=== PATIENT | male | born 1945 | race Caucasian/White ===

== ENCOUNTER 2019-02-24 12:49 | Inpatient (IN) | payer MEDICARE ==
[~2019-02-24] VITALS: Ht 172.7 cm; Wt 63.5 kg
--- NOTE | 2019-02-24 12:55 | NUR ---
PT MAX ROOM #3 UNDER DIRECT OBSEVATION OF KEELY FLORIAN. DR ESTEVEZ EVALUATED THE PT.
[2019-02-24 13:12] LABS: BASOPHILS % (AUTO) 0.5 % (0.0-2.0); EOSINOPHILS # (AUTO) 0.1 K/uL (0.0-0.7); EOSINOPHILS % (AUTO) 0.9 % (0.0-7.0); HEMATOCRIT 42.9 % (36.7-47.1); HEMOGLOBIN 14.3 g/dL (12.5-16.3); LYMPHOCYTES # (AUTO) 1.9 K/uL (20.0-40.0); LYMPHOCYTES % (AUTO) 30.6 % (20.5-51.5); MEAN CORPUSCULAR HEMOGLOBIN 33.7 uug (23.8-33.4); MEAN CORPUSCULAR HGB CONC 33 g/dL (32.5-36.3); MONOCYTES # (AUTO) 0.3 K/uL (2.0-10.0); MONOCYTES % (AUTO) 4.7 % (0.0-11.0); NEUTROPHILS # (AUTO) 3.9 K/uL (1.8-8.9); NEUTROPHILS % (AUTO) 63.3 % (38.5-71.5); PLATELET COUNT (AUTO) 263 K/uL (152-348); RED BLOOD CELL COUNT(AUTO) 4.25 MIL/uL (4.06-5.63); WHITE BLOOD COUNT (AUTO) 6.1 K/uL (3.6-10.2)
[2019-02-24 13:19] LABS: CARBON DIOXIDE 28 mmol/L (21-32); CHLORIDE 102 mmol/L (98-107); CREATININE 0.8 mg/dL (0.6-1.3); GLUCOSE 137 mg/dL (74-106); POTASSIUM 3.7 mmol/L (3.5-5.1); UREA NITROGEN, BLOOD 13 mg/dL (7-18)
[2019-02-24 13:22] LABS: ETHANOL < 3 MG/DL (0-0)
[2019-02-24 13:25] LABS: ALANINE AMINOTRANSFERASE 17 U/L (16-63); ALKALINE PHOSPHATASE 92 U/L (50-136); ASPARTATE AMINOTRANSFERASE 21 U/L (15-37); BILIRUBIN,DIRECT 0.2 mg/dL (0.0-0.2); BILIRUBIN,TOTAL 0.7 mg/dL (0.2-1.0); CREATINE KINASE, TOTAL 344 U/L (39-308); TOTAL PROTEIN, SERUM 7.1 g/dL (6.4-8.2)
[2019-02-24 13:32] LABS: THYROID STIMULATING HORMONE 1.111 mIU/mL (0.358-3.740)
--- NOTE | 2019-02-24 13:38 | NUR ---
There is no 1:1 sitter available at this time. Pt is A/O x 4, calm and coopertive, understands plan of care. Will monitor closely.
[2019-02-24 13:40] LABS: *BILIRUBIN,URIN NEGATIVE (NEGATIVE); *BLOOD, URINE 1+ (NEGATIVE); *CLARITY,URINE CLEAR (CLEAR); *COLOR,URINE YELLOW (YELLOW); *KETONES,URINE NEGATIVE (NEGATIVE); *UROBILINOGEN,URINE 0.2 E.U./dl (NORMAL); LEUKOCYTE ESTERASE ,URINE NEGATIVE (NEGATIVE); NITRITE, URINE NEGATIVE (NEGATIVE); UGLUCOSE NEGATIVE (NEGATIVE)
[2019-02-24 13:48] LABS: BACTERIA,URINE NONE SEEN /HPF (NONE SEEN); RBC,URINE 0-3 /HPF (0-3); SQUAMOUS EPITHELIAL CELL,UR NONE SEEN /HPF (NONE SEEN); WBC,URINE 0-3 /HPF (0-3)
[2019-02-24 14:03] LABS: *AMPHETAMINE, URINE NEGATIVE (NEGATIVE); *BARBITURATE, URINE NEGATIVE (NEGATIVE); *CANNABINOID, URINE NEGATIVE (NEGATIVE); *COCCAINE, URINE NEGATIVE (NEGATIVE); *OPIATE, URINE NEGATIVE (NEGATIVE); *PHENCYCLIDINE SCREEN,URINE NEGATIVE (NEGATIVE)
--- NOTE | 2019-02-24 14:15 | NUR ---
Pt is medically clear, SBAR report given to Niles in MHU. Pt remains alert, oriented, calm and cooperative.
--- NOTE | 2019-02-24 14:51 | NUR ---
PT TRANS TO MHU, NAD NOTED.
[2019-02-24 14:59] VITALS: BP 130/88
[2019-02-24] MEDS ORDERED: ACETAMINOPHEN 325 MG TABLET PO PRN (15:15)
[2019-02-24] MEDS ORDERED: LORAZEPAM 1 MG TABLET PO PRN (15:15)
[2019-02-24] MEDS ORDERED: BLOOD SUGAR DIAGNOSTIC 1 EACH STRIP VI ONE (15:15)
[2019-02-24] MEDS ORDERED: MAGNESIUM HYDROXIDE 30 ML LIQUID UDC PO PRN (15:15)
[2019-02-24] MEDS ORDERED: MAG HYDROX/AL HYDROX/SIMETH 30 ML LIQUID UDC PO PRN (15:15)
--- NOTE | 2019-02-24 16:15 | NUR ---
Social Work Note/Initial Discharge Plan: Patient currently is in the process of changing his address. Patient reported that he is living at his friends house. Per patient, he would like to be discharged to his friends house. plastics factory worker left ex- Mack ([phone]) voicemail to gather more collateral. plastics factory worker will work with the patient and the MD regarding appropriate discharge planning. plastics factory worker will form a safe and proper discharge.
--- NOTE | 2019-02-24 16:15 | NUR ---
Social Work Note/Family Contact: industrial workers contacted patients ex- Mack ([phone]) and left voicemail in regards to patients treatment plan and discharge plan.
--- NOTE | 2019-02-24 16:46 | NUR ---
Admission Note: 73 year old male brought to MHU from ER via w/c, accompanied by ER staff. Pt admitted on a 5150 for DTS under the care of Dr. Martinez. Per hold: pt. admits to taking 1/2 bottle of Tylenol as an attempt to hurt self "I did it to take my life." Pt. was unwilling to disclose reason for attempt. Upon face to face evaluation patient alert and oriented x 3 to name, place and situation, calm, cooperative, able to focus, follow command, semi-fair judgement, has poor insight on why he was in the hospital. denies SI/HI at this time. No s/sx of resp. distress, breathing even, unlabored, on RA with SpO2 of 98%. Denies pain or discomfort. Skin assessment completed, skin intact no edema present. Patient signed admission paperwork. Advisement and patient rights handbook given and explained to patient. Patients valuables and belongings were checked and place in storage. Will continue to monitor patients behavior.
--- NOTE | 2019-02-24 17:31 | NUR ---
correction: pt. on a 2035
[2019-02-24] MEDS: LORAZEPAM 0.5 MG TABLET PO PRN (18:43)
[2019-02-24 20:18] VITALS: BP 121/71
[2019-02-24] MEDS: TEMAZEPAM 7.5 MG CAPSULE PO PRN (21:05)
[2019-02-25 07:30] VITALS: BP 135/83
[2019-02-25] MEDS: LORAZEPAM 0.5 MG TABLET PO PRN ×2 (13:15→19:52)
[2019-02-25 16:00] VITALS: BP 126/78
--- NOTE | 2019-02-25 17:29 | NUR ---
GPS: RECEIVED PATIENT AOX3, COMPLIANT WITH MEDICATION, PATIENT ISOLATIVE AND WITHDRAWN, PATIENT SEEN TALKING ON THE PHONE , DENIES SI AND HI, ASK FOR HIS PRN MEDICATION FOR ANXIETY, WILL CONTINUE MONITOR
[2019-02-25 20:28] VITALS: BP 106/57
[2019-02-25] MEDS: TEMAZEPAM 7.5 MG CAPSULE PO PRN (21:25)
[2019-02-26] MEDS: LORAZEPAM 0.5 MG TABLET PO PRN ×3 (08:05→21:34)
[2019-02-26 08:19] VITALS: BP 129/69
[2019-02-26] MEDS ORDERED: FLUOXETINE HCL 10 MG CAPSULE PO SCH (09:00)
[2019-02-26 16:25] VITALS: BP 141/83
[2019-02-26 20:00] VITALS: BP 126/72
[2019-02-26] MEDS: TEMAZEPAM 7.5 MG CAPSULE PO PRN (22:30)
[2019-02-27 07:30] VITALS: BP 115/71
[2019-02-27] MEDS: FLUOXETINE HCL 20 MG CAPSULE PO SCH (08:05)
[2019-02-27] MEDS ORDERED: FLUOXETINE HCL 10 MG CAPSULE PO SCH (09:00)
[2019-02-27] MEDS: LORAZEPAM 0.5 MG TABLET PO PRN (11:34)
[2019-02-27] MEDS ORDERED: LORAZEPAM 0.5 MG TABLET PO PRN (12:00)
[2019-02-27] MEDS ORDERED: LORAZEPAM 0.5 MG TABLET PO ONE (12:15)
--- NOTE | 2019-02-27 14:55 | NUR ---
Family Contact: food preparation worker left a voicemail for Mack ([phone]), pt's ex to collect collateral information and discuss discharge options. Awaiting call back.
[2019-02-27 15:25] VITALS: BP 116/76
--- NOTE | 2019-02-27 16:25 | NUR ---
GPS: RECEIVED PATIENT AOX3, COMPLIANT WITH MEDICATION, PATIENT PRE-OCCUPIED IN GETTING HIS ATIVAN, SEEN AND EXAMINED BY DR. DHILLON, ORDERS MADE AND CARRIED OUT, WILL CONTINUE MONITOR
--- NOTE | 2019-02-27 18:24 | NUR ---
PATIENT REMAIN CALM COOPERATIVE IN HIS ROOM,
[2019-02-27] MEDS: LORAZEPAM 1 MG TABLET PO PRN (19:14)
[2019-02-27 19:45] VITALS: BP 105/71
[2019-02-27] MEDS: TEMAZEPAM 7.5 MG CAPSULE PO PRN (21:15)
[2019-02-28 07:30] VITALS: BP 112/57
[2019-02-28] MEDS: FLUOXETINE HCL 20 MG CAPSULE PO SCH (08:15)
[2019-02-28] MEDS: LORAZEPAM 1 MG TABLET PO PRN (09:36)
--- NOTE | 2019-02-28 10:00 | NUR ---
Family contact: Concrete Inspector spoke with Mack, patient's ex- ([phone]) regarding patient's discharge plans. Mack expressed that the patient has no where to live and will need either penitentiary placement or board and care. Concrete Inspector explained patient's current options based on his insurance, finances, and needs. Concrete Inspector will be continuing to work on appropriate placement options for the patient and update Mack as we go along.
[2019-02-28 15:42] VITALS: BP 116/69
--- NOTE | 2019-02-28 16:06 | NUR ---
Social Work Note/PC Hearing Notification: drafting layout worker contacted ex- Mack, ([phone]) notified patients probable cause of hearing will be today.
[2019-02-28 20:00] VITALS: BP 124/71
[2019-02-28] MEDS: TEMAZEPAM 7.5 MG CAPSULE PO PRN (21:09)
--- NOTE | 2019-03-01 06:03 | NUR ---
Patient slept 7 hour last night and is still in the bed. No distress noted. Offered a shower this am patient refused.
[2019-03-01 07:30] VITALS: BP 126/74
[2019-03-01] MEDS: FLUOXETINE HCL 20 MG CAPSULE PO SCH (08:00)
[2019-03-01] MEDS: LORAZEPAM 1 MG TABLET PO PRN (09:35)
[2019-03-01] MEDS ORDERED: MOMETASONE FUROATE 15 GM CREAM.GM. TOP SCH (14:30)
[2019-03-01] MEDS ORDERED: LORATADINE 10 MG TABLET PO SCH (14:30)
[2019-03-01] MEDS ORDERED: CLOBETASOL PROPIONATE 0.05% OINT 15 GM TUBE TOP SCH (14:30)
--- NOTE | 2019-03-01 14:47 | NUR ---
Coordination of Care: Sidewalk Repairer faxed patient's referral packet to [facility] ([phone]) attention to Due. Patient is accepted to the group home facility and will be admitting there upon discharge. Patient is aware and agreeable with this facility and plan.
--- NOTE | 2019-03-01 14:47 | NUR ---
Firearms Report (DOJ): Central Office Mechanic completed and submitted a [employer] firearms report for 5250 grave disability certification. A copy of report has been placed in patient chart.
--- NOTE | 2019-03-01 16:26 | NUR ---
Coordination of Care: Criminal Defense Lawyer faxed patient's referral packet to [facility] ([phone]) with attention to Karine for review and coordination of care for placement per Dr. Gutierrez's request. Criminal Defense Lawyer waiting to hear back if patient can be accepted.
[2019-03-01 17:10] VITALS: BP 132/67
--- NOTE | 2019-03-01 17:58 | NUR ---
GPS: PATIENT AOX4, COMPLIANT WITH MEDICATION, ANXIOUS ABOUT HIS DISCHARGE PLANNING, PATIENT BEEN ON THE PHONE MOST OF THE TIME . PATIENT TOOK ATIVAN THIS MORNING , PATIENT TOOK SHOWER AND REMAIN CALM, WILL CONTINUE MONITOR
[2019-03-01 20:10] VITALS: BP 120/77
--- NOTE | 2019-03-01 20:56 | NUR ---
RECEIVED PATIENT IN BED, CALM AND COOPERATIVE, COMPLIANT WITH MEDICATION, DENIES SI/HI/AVH. WILL CONTINUE MONITOR
[2019-03-01] MEDS: TEMAZEPAM 7.5 MG CAPSULE PO PRN (21:01)
[2019-03-02 07:30] VITALS: BP 139/75
[2019-03-02] MEDS: FLUOXETINE HCL 20 MG CAPSULE PO SCH (08:52)
[2019-03-02] MEDS: LORAZEPAM 1 MG TABLET PO PRN (08:57)
--- NOTE | 2019-03-02 13:06 | NUR ---
Pt received resting in bed. Pt assessed, denies SI/HI/AH/VH, able to make needs known and CFS. Pt approached nurses station describing feeling anxious regarding anticipated interview for placement this afternoon. PRN anxiety medication administered per MD orders. Pt compliant with medications. Pt ambulates steadily, walked back to room. All safety and comfort measures implemented. Will continue to monitor.
[2019-03-02 16:00] VITALS: BP 140/69
[2019-03-02 20:00] VITALS: BP 124/73
--- NOTE | 2019-03-02 20:00 | NUR ---
RECEIVED PATIENT IN THE HALLWAY. HE IS NOTED A/O X 3 ABLE TO VERBALIZED FEELINGS. PATIENT IS NOTED WITH LOW MOOD, WITHDRAWN; HOWEVER, DENIES SI, AND HE IS ABLE TO CFS. SAFETY AND FALL PRECAUTION IN PLACE. PT IS REASSURED FOR HIS SAFETY. WILL CONTINUE TO MONITOR.
[2019-03-02] MEDS: TEMAZEPAM 7.5 MG CAPSULE PO PRN (21:36)
[2019-03-03 08:00] VITALS: BP 114/71
[2019-03-03] MEDS: LORAZEPAM 1 MG TABLET PO PRN (08:26)
[2019-03-03] MEDS: FLUOXETINE HCL 20 MG CAPSULE PO SCH (08:26)
[2019-03-03 16:00] VITALS: BP 131/75
[2019-03-03 20:00] VITALS: BP 112/64
[2019-03-03] MEDS: TEMAZEPAM 7.5 MG CAPSULE PO PRN (21:04)
--- NOTE | 2019-03-04 05:37 | NUR ---
Patient slept 7.45 hours last night. No issues or distress during the night. Continuing to monitor for safety . Patient to be discharged today.
[2019-03-04 07:30] VITALS: BP 136/77
[2019-03-04] MEDS: FLUOXETINE HCL 20 MG CAPSULE PO SCH (08:00)
[2019-03-04] MEDS: LORAZEPAM 1 MG TABLET PO PRN (08:00)
--- NOTE | 2019-03-04 08:11 | NUR ---
Discharge Note: [facility] [address] [facility] [address] ([phone]). Please arrange transportation for patient at 10:30am. Spoke with chelsey Preciado and Onur, admin coordinator at the facility who states they are ready to accept the patient today. Patient is aware and agreeable with discharge plans and presents with calm mood and euthymic affect. Patient is alert and oriented x3-4, is unable to plan for self-care, however, would like to receive care at the facility. Patient denies any suicidal or homicidal ideation. Patient will follow-up at the facility with Psychiatrist Dr. Gutierrez and Patient Observation Assistant Dr. Mckeon. Life Teacher faxed patients discharge packet to the facility. Patients ex-, Mack Forman ([phone] has been made aware and is agreeable with discharge plans. Patient was provided with a brief substance abuse intervention and referred to [facility] , [facility] , and [facility] .
--- NOTE | 2019-03-04 11:26 | NUR ---
PT LEFT UNIT ON [facility] ACCOMPANIED BY 2 AUTOMATION CONTROLS ENGINEER. CALM AND COOPERATIVE. COMPLIANT WITH INSTRUCTIONS. ABLE TO MAKE ALL NEEDS KNOWN. DENIES PAIN OR DISCOMFORT. DENIES SUICIDAL AND HOMICIDAL IDEATIONS. LEFT WITH ALL NOTED BELONGINGS AND PAPERWORK. IN NO ACUTE DISTRESS.
== END 2019-03-04 11:30 | DRG 885 ==
LOC: ER 12:49 → GPS 14:36
PROVIDERS: ADMIT Psychiatry & Neurology Psychosomatic Medicine; ATTEND Hospitalist
DX: F33.2 Major depressive disorder, recurrent severe without psychotic features (principal); T39.1X2D Poisoning by 4-Aminophenol derivatives, intentional self-harm, subsequent encounter; M19.90 Unspecified osteoarthritis, unspecified site; F19.10 Other psychoactive substance abuse, uncomplicated; I25.2 Old myocardial infarction; Z91.011 Allergy to milk products; I70.0 Atherosclerosis of aorta
CPT/HCPCS: 36415; 70030-TC; 71045; 80307; 84443; 85025; 93005; A4663; G0480

== ENCOUNTER 2019-03-21 13:01 | Inpatient (IN) | payer MEDICARE, OTHER ==
[~2019-03-21] VITALS: Ht 167.6 cm; Wt 61.7 kg
[2019-03-21] MEDS ORDERED: BISA10SU61 RC (13:23)
[2019-03-21] MEDS ORDERED: FLUO20CA36 PO (13:23)
[2019-03-21] MEDS ORDERED: GUAI118.5 PO (13:23)
[2019-03-21] MEDS ORDERED: LORA-259 PO (13:23)
[2019-03-21] MEDS ORDERED: NA P133E RC (13:23)
[2019-03-21] MEDS ORDERED: DOCU-141 PO (13:23)
[2019-03-21] MEDS ORDERED: MULT-213 PO (13:23)
[2019-03-21] MEDS ORDERED: MAGN400O6 PO (13:23)
[2019-03-21] MEDS ORDERED: ACET-2154 PO (13:23)
[2019-03-21] MEDS ORDERED: ZOLP10TA2 PO (13:23)
[2019-03-21] MEDS ORDERED: MULT1TAB73 PO (13:23)
[2019-03-21 13:39] LABS: BASOPHILS % (AUTO) 0.4 % (0.0-2.0); EOSINOPHILS % (AUTO) 0.5 % (0.0-7.0); HEMATOCRIT 43.7 % (36.7-47.1); LYMPHOCYTES # (AUTO) 1.9 K/uL (20.0-40.0); LYMPHOCYTES % (AUTO) 23.2 % (20.5-51.5); MEAN CORPUSCULAR HEMOGLOBIN 34.4 uug (23.8-33.4); MEAN CORPUSCULAR HGB CONC 34 g/dL (32.5-36.3); MEAN CORPUSCULAR VOLUME 99.8 fL (73.0-96.2); MONOCYTES # (AUTO) 0.3 K/uL (2.0-10.0); NEUTROPHILS % (AUTO) 71.9 % (38.5-71.5); PLATELET COUNT (AUTO) 265 K/uL (152-348); RED BLOOD CELL COUNT(AUTO) 4.38 MIL/uL (4.06-5.63); WHITE BLOOD COUNT (AUTO) 8.3 K/uL (3.6-10.2)
[2019-03-21 13:48] LABS: CARBON DIOXIDE 26 mmol/L (21-32); CHLORIDE 102 mmol/L (98-107); CREATININE 1.4 mg/dL (0.6-1.3); GLUCOSE 141 mg/dL (74-106); UREA NITROGEN, BLOOD 13 mg/dL (7-18)
[2019-03-21 13:51] LABS: *BILIRUBIN,URIN NEGATIVE (NEGATIVE); *BLOOD, URINE NEGATIVE (NEGATIVE); *CLARITY,URINE CLEAR (CLEAR); *COLOR,URINE YELLOW (YELLOW); *KETONES,URINE NEGATIVE (NEGATIVE); LEUKOCYTE ESTERASE ,URINE NEGATIVE (NEGATIVE); NITRITE, URINE NEGATIVE (NEGATIVE); UGLUCOSE NEGATIVE (NEGATIVE)
[2019-03-21 13:54] LABS: ALANINE AMINOTRANSFERASE 18 U/L (16-63); ALKALINE PHOSPHATASE 103 U/L (50-136); ASPARTATE AMINOTRANSFERASE 14 U/L (15-37); BILIRUBIN,DIRECT 0.1 mg/dL (0.0-0.2); BILIRUBIN,TOTAL 0.5 mg/dL (0.2-1.0); TOTAL PROTEIN, SERUM 7.3 g/dL (6.4-8.2)
[2019-03-21 13:57] LABS: ACETAMINOPHEN < 2.0 ug/mL (10-30)
[2019-03-21 14:00] LABS: ETHANOL < 3 MG/DL (0-0)
[2019-03-21 14:03] LABS: BACTERIA,URINE NONE SEEN /HPF (NONE SEEN); WBC,URINE 0-3 /HPF (0-3)
[2019-03-21 14:04] LABS: MUCUS,URINE FEW /LPF (0-FEW); RBC,URINE 0-3 /HPF (0-3); SQUAMOUS EPITHELIAL CELL,UR NONE SEEN /HPF (NONE SEEN)
[2019-03-21 14:07] LABS: *AMPHETAMINE, URINE NEGATIVE (NEGATIVE); *BARBITURATE, URINE NEGATIVE (NEGATIVE); *CANNABINOID, URINE NEGATIVE (NEGATIVE); *COCCAINE, URINE NEGATIVE (NEGATIVE); *OPIATE, URINE NEGATIVE (NEGATIVE); *PHENCYCLIDINE SCREEN,URINE NEGATIVE (NEGATIVE)
--- NOTE | 2019-03-21 14:17 | NUR ---
Art contacted, ETA within the hour
--- NOTE | 2019-03-21 14:50 | NUR ---
Kiel Woodall at bedside for crisis eval.
[2019-03-21] MEDS ORDERED: OLANZAPINE 10 MG VIAL IM ONE ×2 (15:19→15:30)
--- NOTE | 2019-03-21 15:20 | NUR ---
Patient placed on a 5150 for GD by Art
[2019-03-21] MEDS ORDERED: HALOPERIDOL LACTATE 5 MG/1 ML VIAL ONE (15:26)
[2019-03-21] MEDS ORDERED: HALOPERIDOL LACTATE 5 MG/1 ML VIAL IM ONE (15:30)
--- NOTE | 2019-03-21 15:32 | NUR ---
Report given to ALO Rothman
[2019-03-21 15:45] VITALS: BP 132/98
--- NOTE | 2019-03-21 15:45 | NUR ---
GPS: Nursing Notes: Admitting Notes: Patient admitted to MHU on 5150 GD due to agitation and manic behavior, obsessive, ruminates, not eating, disorganized, poor impulse control, not able to provide for food, senior care or clothing due to a mental disorder, on face to face assessment, patient is anxious, disorganized, alert and oriented to name and time only, impaired judgment, pacing around the unit, reoriented to the unit and admitting package given to the patient, needy at times and forgetful, unable to formulate a viable plan for self care unkempt appearance, continue to monitor for safety, Dr. Gutierrez and Dr. Ponce informed of admission.
--- NOTE | 2019-03-21 15:45 | NUR ---
Patient transported to MHU in stable condition.
[2019-03-21] MEDS ORDERED: BLOOD SUGAR DIAGNOSTIC 1 EACH STRIP VI ONE (16:15)
[2019-03-21] MEDS ORDERED: ACETAMINOPHEN 325 MG TABLET PO PRN (16:15)
[2019-03-21] MEDS ORDERED: MAGNESIUM HYDROXIDE 30 ML LIQUID UDC PO PRN (16:15)
[2019-03-21] MEDS ORDERED: MAG HYDROX/AL HYDROX/SIMETH 30 ML LIQUID UDC PO PRN (16:15)
[2019-03-21 19:30] VITALS: BP 109/72
[2019-03-21] MEDS: ZOLPIDEM 5 MG TABLET PO PRN (21:01)
[2019-03-22 07:24] LABS: BASOPHILS % (AUTO) 0.4 % (0.0-2.0); EOSINOPHILS # (AUTO) 0.1 K/uL (0.0-0.7); EOSINOPHILS % (AUTO) 0.7 % (0.0-7.0); HEMATOCRIT 41.4 % (36.7-47.1); HEMOGLOBIN 14.4 g/dL (12.5-16.3); LYMPHOCYTES # (AUTO) 1.8 K/uL (20.0-40.0); LYMPHOCYTES % (AUTO) 25.4 % (20.5-51.5); MEAN CORPUSCULAR HEMOGLOBIN 33.9 uug (23.8-33.4); MEAN CORPUSCULAR HGB CONC 35 g/dL (32.5-36.3); MEAN CORPUSCULAR VOLUME 97.8 fL (73.0-96.2); MONOCYTES # (AUTO) 0.4 K/uL (2.0-10.0); MONOCYTES % (AUTO) 5.6 % (0.0-11.0); NEUTROPHILS # (AUTO) 4.7 K/uL (1.8-8.9); NEUTROPHILS % (AUTO) 67.9 % (38.5-71.5); PLATELET COUNT (AUTO) 269 K/uL (152-348); RED BLOOD CELL COUNT(AUTO) 4.23 MIL/uL (4.06-5.63); WHITE BLOOD COUNT (AUTO) 6.9 K/uL (3.6-10.2)
[2019-03-22 07:28] LABS: CREATININE 0.7 mg/dL (0.6-1.3); POTASSIUM 3.9 mmol/L (3.5-5.1)
[2019-03-22 07:30] VITALS: BP 134/81
--- NOTE | 2019-03-22 07:30 | NUR ---
Recieved pt lying in his bed, alert and oriented x2. Appears anxious. Communicates well.
[2019-03-22] MEDS: LORAZEPAM 1 MG TABLET PO PRN ×2 (08:07→12:27)
--- NOTE | 2019-03-22 08:30 | NUR ---
Medicated with Ativan 1mg for his anxiety. Pt is pacing back and forth in the mix way.
--- NOTE | 2019-03-22 08:53 | NUR ---
Social Work Note/Initial Discharge Note: Pt currently resides at [facility] [address] [place] [address]; ([phone]). SW will contact facility to see if pt is welcomed back. ARIELLE will work with the pt and the MD regarding appropriate discharge planning. SW will form a safe and proper discharge.
--- NOTE | 2019-03-22 09:07 | NUR ---
Social Work Note/Discharge Plan: company laundry worker spoke with Ilana barbosa from [facility] ([phone]). Stated that patient is welcomed back upon discharge.
--- NOTE | 2019-03-22 09:30 | NUR ---
Showered without any problem. Pt requested to transfer in other room , does not like his roomate.
--- NOTE | 2019-03-22 10:12 | NUR ---
Coordination of Care: Test Driver spoke with Ilana, marketing liaison for [facility] ([phone]) and [facility] ([phone]) who stated that the patient is welcome back to either facility when he is stable. Ilana stated that the patient has increased anxiety and had become attention seeking and somewhat intrusive.
[2019-03-22 15:28] VITALS: BP 133/73
[2019-03-22] MEDS ORDERED: ZOLPIDEM 5 MG TABLET PO PRN (17:30)
[2019-03-22] MEDS: FLUOXETINE HCL 20 MG CAPSULE PO SCH (18:03)
[2019-03-22 20:16] VITALS: BP 118/78
[2019-03-22] MEDS: ZOLPIDEM 5 MG TABLET PO PRN (20:46)
[2019-03-23 07:30] VITALS: BP 127/82
[2019-03-23] MEDS: LORAZEPAM 1 MG TABLET PO PRN ×2 (07:59→12:52)
[2019-03-23] MEDS: FLUOXETINE HCL 20 MG CAPSULE PO SCH (08:00)
--- NOTE | 2019-03-23 09:33 | NUR ---
Social Work Note/Coordination of Care: repack room worker spoke with Aaron barbosa from [facility] ([phone]) and [facility] ([phone]). repack room worker faxed patients psychiatric H & P and progress notes. Per Aaron, patient was accepted to [facility] and [facility] is pending. repack room worker spoke with Karine from [facility] ([phone]) and faxed patients psychiatric H & P psychiatric notes and progress notes.repack room worker spoke with Jazzmine barbosa from [facility] ([phone]) and faxed patients psychiatric H & P and progress notes and is pending.
[2019-03-23] MEDS ORDERED: BISACODYL 10 MG SUPP.RECT RC PRN (12:00)
[2019-03-23] MEDS ORDERED: ACETAMINOPHEN 325 MG TABLET PO SCH (12:00)
[2019-03-23] MEDS ORDERED: GUAIFENESIN/DEXTROMETHORPHAN 5 ML UDC PO PRN (12:00)
[2019-03-23] MEDS ORDERED: MAGNESIUM HYDROXIDE 30 ML LIQUID UDC PO PRN (12:00)
--- NOTE | 2019-03-23 12:23 | NUR ---
Social Work Note/Coordination of Care: protective services case worker spoke with Aaron barbosa from [facility] ([phone]) and [facility] ([phone]) who state patient is accepted. protective services case worker spoke with Karine from [facility] ([phone]) and stated patient is denied due to no SNF days. protective services case worker spoke with Christa from [facility] ([phone]) and stated that patient is accepted.
--- NOTE | 2019-03-23 12:24 | NUR ---
Social Work Note/Family Contact: fat purification worker spoke with patients ex- Mack ([phone]) and gave her three places where they accepted patient: CJ admin coordinator from [place] ([phone]) and Vinicio from [facility] ([phone]) and Christa from [facility] ([phone]). Per Mack's request, professor of social work found these placements for patient. Per Mack, she stated that she is in [place] and would like to research these facilities before placing patient and she stated that she will try to contact this typewriter ribbon winder with an answer by 03/27/19.
--- NOTE | 2019-03-23 12:28 | NUR ---
Social Work Note/Individual Therapy: baking factory worker met with patient to provide brief therapy in regard to patients anxiety. Patient stated that his anxiety has worsen and that he is unable to manage it. baking factory worker encouraged patient to meditate and to find gratitude. baking factory worker also discussed with patient that this sba underwriter spoke with ex- Mack ([phone]) and discussed placement issues with her. baking factory worker stated to patient that he is accepted to three SNFs ([facility], [facility], and [facility]) and patient seemed to be happy with the idea.
--- NOTE | 2019-03-23 12:59 | NUR ---
patients been needy, easily irritable, constantly going to the nursing station asking for his medication needs lots of redirection,
[2019-03-23 16:00] VITALS: BP 108/65
[2019-03-23] MEDS: busPIRone 5 MG TABLET PO SCH (16:51)
--- NOTE | 2019-03-23 17:12 | NUR ---
Gps/Machine Feeder- Anxious, needy, figity, tremulous, encouraged to eat in the dinning room. Kept coming to Nurses stations , asking for simple needs, and wants his needs be met at [facility]. Kept asking and checking what time he can have ativan
[2019-03-23 20:19] VITALS: BP 126/75
[2019-03-23] MEDS: ZOLPIDEM 5 MG TABLET PO PRN (20:43)
--- NOTE | 2019-03-23 20:50 | NUR ---
Received patient in the hallway, interacting with peers. patient was very needy, anxious, constantly comes back to ask for food and ask question about his medication. Provided food, explained medication orders and redirected. Patient received RAMAN Tanvir at 2042. 03/23/2019 per patient request. Will continue to monitor patient for safety.
[2019-03-24 07:30] VITALS: BP 140/89
[2019-03-24] MEDS: LORAZEPAM 1 MG TABLET PO PRN ×3 (08:06→18:03)
[2019-03-24] MEDS: DOCUSATE SODIUM 100 MG CAPSULE PO SCH (08:07)
[2019-03-24] MEDS: busPIRone 5 MG TABLET PO SCH ×4 (08:08→20:10)
[2019-03-24] MEDS: FLUOXETINE HCL 20 MG CAPSULE PO SCH (08:08)
[2019-03-24] MEDS: MULTIVIT, IRON, MIN NO. 8, FA TABLET PO SCH (08:08)
[2019-03-24] MEDS ORDERED: Medication Not On Formulary EA (Multivitamins W-Minerals (Multivitamin With Minerals) 1 PO SCH (09:00)
[2019-03-24 17:18] VITALS: BP 114/78
[2019-03-24 20:54] VITALS: BP 108/75
[2019-03-24] MEDS: ZOLPIDEM 5 MG TABLET PO PRN (21:20)
--- NOTE | 2019-03-24 22:00 | NUR ---
received to care, highly visible on unit, pleasant, but needy, upon approach. initially was very anxious, focused on getting his bedtime medication, then his PRN ambien, for insomnia, which was given at 2119. as of 2199, he appears to be asleep. no distress noted. will continue to monitor closely.
--- NOTE | 2019-03-25 06:15 | NUR ---
slept 7.75 hours total. is now awake. appears groggy, with eyes half open, requesting "buspar" or "ativan". encouraged to go back to bed, and try to go back to sleep.
[2019-03-25 07:20] LABS: CREATININE 0.8 mg/dL (0.6-1.3); PHOSPHOROUS 3.6 mg/dL (2.5-4.9); POTASSIUM 4.1 mmol/L (3.5-5.1)
[2019-03-25 07:24] LABS: BASOPHILS % (AUTO) 0.5 % (0.0-2.0); EOSINOPHILS # (AUTO) 0.1 K/uL (0.0-0.7); HEMATOCRIT 42.3 % (36.7-47.1); HEMOGLOBIN 14.4 g/dL (12.5-16.3); LYMPHOCYTES # (AUTO) 2.1 K/uL (20.0-40.0); LYMPHOCYTES % (AUTO) 35.5 % (20.5-51.5); MEAN CORPUSCULAR HEMOGLOBIN 33.8 uug (23.8-33.4); MEAN CORPUSCULAR HGB CONC 34 g/dL (32.5-36.3); MEAN CORPUSCULAR VOLUME 98.9 fL (73.0-96.2); MONOCYTES # (AUTO) 0.4 K/uL (2.0-10.0); MONOCYTES % (AUTO) 6.5 % (0.0-11.0); NEUTROPHILS # (AUTO) 3.3 K/uL (1.8-8.9); NEUTROPHILS % (AUTO) 56.5 % (38.5-71.5); PLATELET COUNT (AUTO) 289 K/uL (152-348); RED BLOOD CELL COUNT(AUTO) 4.27 MIL/uL (4.06-5.63); WHITE BLOOD COUNT (AUTO) 5.9 K/uL (3.6-10.2)
[2019-03-25 07:53] VITALS: BP 134/81
[2019-03-25] MEDS: LORAZEPAM 1 MG TABLET PO PRN ×2 (07:55→16:20)
[2019-03-25] MEDS: FLUOXETINE HCL 20 MG CAPSULE PO SCH (08:29)
[2019-03-25] MEDS: busPIRone 5 MG TABLET PO SCH ×4 (08:29→20:25)
[2019-03-25] MEDS: DOCUSATE SODIUM 100 MG CAPSULE PO SCH (08:29)
[2019-03-25] MEDS: MULTIVIT, IRON, MIN NO. 8, FA TABLET PO SCH (08:29)
[2019-03-25 17:00] VITALS: BP 103/71
[2019-03-25 20:09] VITALS: BP 120/75
[2019-03-25] MEDS: ZOLPIDEM 5 MG TABLET PO PRN (21:44)
[2019-03-26 08:02] VITALS: BP 117/65
[2019-03-26] MEDS: FLUOXETINE HCL 20 MG CAPSULE PO SCH (08:24)
[2019-03-26] MEDS: DOCUSATE SODIUM 100 MG CAPSULE PO SCH (08:24)
[2019-03-26] MEDS: MULTIVIT, IRON, MIN NO. 8, FA TABLET PO SCH (08:24)
[2019-03-26] MEDS: LORAZEPAM 1 MG TABLET PO PRN (08:24)
[2019-03-26] MEDS: busPIRone 5 MG TABLET PO SCH ×3 (08:25→20:08)
[2019-03-26 16:48] VITALS: BP 142/87
[2019-03-26 20:00] VITALS: BP 128/78
[2019-03-26] MEDS: ZOLPIDEM 5 MG TABLET PO PRN (21:26)
[2019-03-27 07:30] VITALS: BP 136/75
[2019-03-27] MEDS: FLUOXETINE HCL 20 MG CAPSULE PO SCH (08:20)
[2019-03-27] MEDS: DOCUSATE SODIUM 100 MG CAPSULE PO SCH (08:20)
[2019-03-27] MEDS: MULTIVIT, IRON, MIN NO. 8, FA TABLET PO SCH (08:20)
[2019-03-27] MEDS: busPIRone 5 MG TABLET PO SCH ×3 (08:20→20:08)
--- NOTE | 2019-03-27 10:08 | NUR ---
Social Work Note/Family Contact: steel construction worker spoke with patients ex- Mack ([phone]) who stated that she did not want the three placements that this social science professor provided. Per Mack, she wants patient back to [facility].
--- NOTE | 2019-03-27 10:21 | NUR ---
Social Work Note/PC Hearing Notification: odd bundle worker contacted patients ex-, ([phone]) and notified patients probable cause of hearing today.
[2019-03-27 16:10] VITALS: BP 136/75
[2019-03-27 20:39] VITALS: BP 144/83
[2019-03-27] MEDS: ZOLPIDEM 5 MG TABLET PO PRN (21:20)
[2019-03-28] MEDS: LORAZEPAM 1 MG TABLET PO PRN (00:02)
[2019-03-28 07:30] VITALS: BP 126/79
[2019-03-28] MEDS: FLUOXETINE HCL 20 MG CAPSULE PO SCH (08:21)
[2019-03-28] MEDS: DOCUSATE SODIUM 100 MG CAPSULE PO SCH (08:21)
[2019-03-28] MEDS: MULTIVIT, IRON, MIN NO. 8, FA TABLET PO SCH (08:21)
[2019-03-28] MEDS: busPIRone 5 MG TABLET PO SCH ×4 (08:21→20:00)
[2019-03-28 15:52] VITALS: BP 123/77
--- NOTE | 2019-03-28 16:09 | NUR ---
Social Work Note/Individual Therapy: scaffold worker met with patient for brief counseling. Patient stated that he feels less anxious and that he believes that his medications are helping me. Patient stated that he used to not feel this anxious and that it has become difficult for him. scaffold worker provided education and emotional support.
[2019-03-28 20:16] VITALS: BP 138/89
[2019-03-28] MEDS: ZOLPIDEM 5 MG TABLET PO PRN (20:30)
[2019-03-29 07:30] VITALS: BP 143/80
[2019-03-29] MEDS: MULTIVIT, IRON, MIN NO. 8, FA TABLET PO SCH (08:07)
[2019-03-29] MEDS: FLUOXETINE HCL 10 MG CAPSULE PO SCH (08:08)
[2019-03-29] MEDS: DOCUSATE SODIUM 100 MG CAPSULE PO SCH (08:08)
[2019-03-29] MEDS: busPIRone 5 MG TABLET PO SCH ×3 (08:08→16:09)
[2019-03-29] MEDS ORDERED: FLUOXETINE HCL 20 MG CAPSULE PO SCH (09:00)
--- NOTE | 2019-03-29 10:12 | NUR ---
Social Work Note/Coordination of Care: public health worker spoke with chelsey Preciado from [facility] and addressed that patient is welcomed back. This racebook writer faxed ([phone]) patients psychiatric H & P notes and progress notes.
--- NOTE | 2019-03-29 10:18 | NUR ---
Social Work Note/Family Contact: can intake worker contacted patients ex- Mack ([phone]) and addressed patients discharge plan.
--- NOTE | 2019-03-29 14:33 | NUR ---
Social Work Note/Coordination of Care: long term care social worker spoke with Aquiles from [facility] ([phone]) ext [phone] and faxed ([phone]) patients psychiatric notes, progress notes, and facesheet. Per Aquiles, he stated that upon admissions he would need to speak to patient, but patient refused to speak to him in regard to the mental health program. This promotion writer provided patient information to Aquiles and upon discharge he will follow up with patient.
--- NOTE | 2019-03-29 14:36 | NUR ---
Social Work Note/Individual Therapy: dietary worker provided patient with [facility] resources for mental health program ([phone]) ext [phone] Gutierrez wants him to join this program for individual counseling, group counseling, and to participate in daily activities. Patient refused at the moment but would take into consideration upon discharge. This worker provided resources for patient to take upon discharge.
--- NOTE | 2019-03-29 14:38 | NUR ---
Social Work Note/Coordination of Care: community support worker spoke to Ilana barbosa for [facility] ([phone]) and stated that patient is considering the outpatient mental health program at [facility] ([phone]) ext [phone]. Per Ilana, she transferred this information to the psych social worker at [facility].
[2019-03-29] MEDS: LORAZEPAM 1 MG TABLET PO PRN (14:42)
[2019-03-29 16:00] VITALS: BP 123/81
--- NOTE | 2019-03-29 20:00 | NUR ---
RECEIVED PATIENT IN THE HALLWAY, HE IS NOTED A/O X 3 ABLE TO AMBULATE WITH STEADY GAIT. HE IS NOTED WITH WORRIED LOOK, PREOCCUPIED WITH HIS MEDICATION REGIMENT, DEMANDING AND MEDICATION SEEKER. PATIENT IS REASSURED AND REDIRECTED, HE IS NOTED REDIRECTABLE. DENIED SI/HI/VH/AH. PATIENT IS REASSURED FOR HIS SAFETY. V/S STABLE AT THIS TIME. SAFETY AND FALL PRECAUTION IN PLACE.
[2019-03-29 20:11] VITALS: BP 140/80
[2019-03-29] MEDS: ZOLPIDEM 5 MG TABLET PO PRN (20:43)
[2019-03-30 07:30] VITALS: BP 133/67
--- NOTE | 2019-03-30 08:00 | NUR ---
Received patient awake, alert and oriented in his assigned bed. Bed is in low and locked position. Patient is ambulatory and able to perform self care and ADL's independently. Patient provided with education about communicating his needs to staff appropriately and education about impulse control. Patient encouraged to participate in the therapeutic milieu.
--- NOTE | 2019-03-30 08:04 | NUR ---
Social Work Note/Discharge: Patient will be discharged to longterm facility, [facility] [address] , [place] [address]; ([phone]) via ambulance transportation at 12PM. Tobacco Sorter spoke with Ilanarodriguez barbosa ([phone]), who stated patient will be accepted back at facility today. Per ex- Mack ([phone]) has been made aware and agreeable with discharge plans. Patient is alert and oriented x3-4 and is unable to plan for self-care. Patient denies any suicidal or homicidal ideations. Patient is aware and agreeable with discharge plans. Patient will continue to follow-up with (Psychiatrist) Dr. Gutierrez and (Health Promotion Officer) Dr. Jackson at [facility]; ([phone]). Patient will follow up with Aquiles (watershed coordinator) from [facility] ([phone]) ext [phone] for Intensive Outpatient (IOP) program for mental health services (individual and group counseling). Patient presents with euthymic mood and congruent affect.
--- NOTE | 2019-03-30 08:06 | NUR ---
Social Work Note/Firearm Reports: Director Of Video Analytics completed and submitted a [employer] firearms report for 5250 grave disability certification. A copy of report has been placed in patient chart.
[2019-03-30] MEDS: MULTIVIT, IRON, MIN NO. 8, FA TABLET PO SCH (08:08)
[2019-03-30] MEDS: DOCUSATE SODIUM 100 MG CAPSULE PO SCH (08:08)
[2019-03-30] MEDS: busPIRone 5 MG TABLET PO SCH ×2 (08:08→12:03)
[2019-03-30] MEDS: FLUOXETINE HCL 10 MG CAPSULE PO SCH (08:08)
--- NOTE | 2019-03-30 12:31 | NUR ---
Patient discharged via ambulance accompanied by ambulance drivers to [facility] at 12:30 PM. Patient's belongings and valuable inventoried and returned to patient. Patient provided with discharge instructions and provided with education about prescriptions, he is able to verbalize understanding. This pattern chart writer called report to KEELY Mota at [facility]. Patient denies SI/HI. Patient is calm, cooperative, and stable at discharge. Discharged with no adverse event.
== END 2019-03-30 12:30 | DRG 885 ==
LOC: ER 13:03 → GPS 15:35
PROVIDERS: ADMIT Psychiatry & Neurology Psychosomatic Medicine; ATTEND Registered Nurse
DX: F39 Unspecified mood [affective] disorder (principal); N17.9 Acute kidney failure, unspecified; E46 Unspecified protein-calorie malnutrition; F41.9 Anxiety disorder, unspecified; F15.10 Other stimulant abuse, uncomplicated; F19.10 Other psychoactive substance abuse, uncomplicated; F10.10 Alcohol abuse, uncomplicated; Y90.0 Blood alcohol level of less than 20 mg/100 ml; Z91.5 Personal history of self-harm; I25.2 Old myocardial infarction; I70.0 Atherosclerosis of aorta; Z59.0 Homelessness; I44.4 Left anterior fascicular block; G47.00 Insomnia, unspecified
CPT/HCPCS: 36415; 80307; 83735; 84100; 85025; 93005; A4663; G0480; G0480-TC; J1630; J2358